=== PATIENT | female | born 2000 | race Caucasian/White ===

== ENCOUNTER 2018-02-22 12:22 | Emergency (ER) | payer SELFPAY ==
[~2018-02-22] VITALS: Ht 167.6 cm; Wt 59.0 kg
[2018-02-22] MEDS ORDERED: FLUCONAZOLE 100 MG TABLET ONE (12:42)
[2018-02-22] MEDS ORDERED: FLUCONAZOLE 100 MG TABLET PO ONE (12:45)
--- NOTE | 2018-02-22 12:51 | NUR ---
PT WAS D/C TO HOME AFTER ER MD EVALUation. d/c instructions given to the pt.
[2018-02-22 12:53] VITALS: BP 126/72
== END 2018-02-22 12:54 | disposition home or self-care (01) ==
LOC: ER 12:22
DX: N76.0 Acute vaginitis (principal); Z59.0 Homelessness
CPT/HCPCS: A4663